=== PATIENT | female | born 1940 | race Caucasian/White ===

== ENCOUNTER 2024-06-22 13:30 | Emergency (ER) | payer OTHER ==
[2024-06-22] MEDS: LACTATED RINGERS SOLUTION 1000 ML INFUS.BAG IV ONE (14:00)
[2024-06-22 14:07] VITALS: BP 151/58; PULSE 74; RESP 18; TEMP 98.2; BMI 32.5
[2024-06-22 14:20] LABS: ABSOLUTE IMMATURE GRANULOCYTES 0.01 x10^3/uL (0.0-0.031); BASOPHILS # 0.03 x10^3/uL (0.01-0.08); EOSINOPHILS # 0.06 x10^3/uL (0.04-0.36); HEMATOCRIT 38.5 % (34.1-44.9); HEMOGLOBIN 12.3 g/dL (11.2-15.7); MCHC 31.9 g/dl (32.2-35.5); MEAN CELL VOLUME 90.8 fl (79.4-94.8); MEAN PLT VOLUME 10.1 fl (9.4-12.3); MONOCYTE # 0.52 x10^3/uL (0.24-0.86); MONOCYTE % 9.1 % (4.7-12.5); PLATELET COUNT # 258 x10^3/uL (182-369); RDW 14.3 % (12.5-17.0)
[2024-06-22 14:30] LABS: INR 0.86 (0.83-1.09); PROTHROMBIN TIME (PATIENT) 9.8 SEC (9.7-13.0)
[2024-06-22 14:33] LABS: ACTIVATED PTT 30.4 SECONDS (25.2-36.5)
[2024-06-22 14:42] LABS: ALBUMIN 4.3 g/dl (3.4-5.0); BILIRUBIN,TOTAL 0.5 mg/dl (0.2-1); CALCIUM 9.4 mg/dl (8.5-10.1); CREATININE 0.9 mg/dl (0.6-1.3); MAGNESIUM 2.1 mg/dL (1.8-2.4); POTASSIUM 4.4 mmol/L (3.5-5.1)
[2024-06-22 15:29] LABS: VENOUS BASE EXCESS -4.6 mmol/L (-2-2); VENOUS O2 SATURATION 47.7 % (70-80); VENOUS PCO2 45.1 mmHg (38-52); VENOUS PH 7.303 (7.310-7.410)
[2024-06-22 15:59] LABS: LACTIC ACID 2.3 mmol/L (0.4-2.0)
[2024-06-22 16:25] LABS: HCV DIAGNOSTIC IN-HOUSE W/RFLX NON-REACTIVE (NONREACTIVE); HIV INTERPRETATION NEGATIVE (NEGATIVE)
== END 2024-06-22 16:17 | disposition home or self-care (01) ==
LOC: FER 13:30
DX: E11.65 Type 2 diabetes mellitus with hyperglycemia (principal); U07.1 COVID-19
CPT/HCPCS: 0241U-QW; 36415; 80053; 81003; 82010; 82803; 82962; 83605; 83690; 83735; 85025; 85610; 85730; 86803; 86850; 86900; 86901; 87086; 87389; 99283-25